=== PATIENT | male | born 1950 | race Caucasian/White ===

== ENCOUNTER 2018-06-16 16:40 | Inpatient (IN) | payer MEDICARE ==
[2018-06-16] MEDS ORDERED: Lidocaine Viscous Sol 2% 15 ml UD Cup ONE (18:43)
[2018-06-16] MEDS ORDERED: Mag-Al 1200 mg/1200 mg/30 ML UDCUP ONE (18:43)
[2018-06-16] MEDS ORDERED: Ondansetron PF 4 MG/2 ML Vial IVP PRN (21:31)
[2018-06-16] MEDS ORDERED: Ondansetron ODT 4 MG TAB PO PRN (21:31)
[2018-06-16 22:56] VITALS: BMI 41.1
[2018-06-17] MEDS: Piperacillin/Tazobactam 3.375 GM in Sodium Chloride 0.9% 100 ML IVPB SCH ×3 (00:18→12:45)
[2018-06-17] MEDS: Acetaminophen 325 MG TAB PO PRN ×3 (01:03→16:18)
--- NOTE | 2018-06-17 02:46 | HP ---
PRIMARY CARE DOCTOR: Dr. Shelbie Castaneda. CODE STATUS: Full code. TIME OF EVALUATION: 07:45 p.m. CHIEF COMPLAINT: Pain of the left ear and left facial drooping. HISTORY OF PRESENT ILLNESS: This is a 68-year-old male patient with past medical history of hypertension, came to the hospital after having left-sided ear pain, the symptoms have been present for the past week. He has received treatment as outpatient with amoxicillin and also switched to clindamycin yesterday. The patient was transferred from [place]. However, since yesterday night, the patient has left-sided facial droop that is new for him. He reported still having the same symptoms and having some associated hearing loss. The pain was dull in nature. Symptoms are moderate. REVIEW OF SYSTEMS: CONSTITUTIONAL: No fever, chills, or generalized weakness. RESPIRATORY: No cough, sputum production, or shortness of breath. HEENT: The patient has left ear pain. CARDIOVASCULAR: No chest pain or palpitations. GASTROINTESTINAL: No nausea, vomiting, diarrhea, or abdominal pain. BEHAVIORAL HEALTH ASSISTANT: No dizziness, headache, or feeling lightheaded. The patient reported left-sided drooping of his face. GENITOURINARY: No burning on urination. EXTREMITIES: No leg swelling. All other systems were reviewed and negative except for the findings mentioned above. PAST MEDICAL HISTORY: Positive for hypertension. PAST SURGICAL HISTORY: No surgical history. PSYCHIATRIC HISTORY: No previous psych history. SOCIAL HISTORY: The patient does not use alcohol, drugs, or tobacco. FAMILY HISTORY: Reviewed and noncontributory for current presentation. KNOWN ALLERGIES: No known drug allergies. REPORTED MEDICATIONS: None updated. PHYSICAL EXAMINATION: VITAL SIGNS: On presentation, blood pressure 138/99 with heart rate 79, respiratory rate was 16, temperature 99, pain was 0/10, and oxygen saturation was 96. GENERAL APPEARANCE: The patient is alert, oriented, not in acute distress. HEENT: Eyes, normal conjunctivae. Moist oral mucosa. Anicteric. No JVD. RESPIRATORY: Bilateral air entry. No rales. No wheezing. Symmetric expansion. CARDIOVASCULAR: Normal rate, regular rhythm. No murmurs. No gallop. No edema. ABDOMEN: Soft. Normal bowel sounds. MUSCULOSKELETAL: Baseline range of motion and strength. No tenderness. SKIN: Warm, intact. No pallor. No rash. No redness. Peripheral pulses are present. Capillary refill seems to be intact. NEUROLOGIC: The patient has left-sided facial droop with no other evident neurological deficit. The patient has some slurred speech, but he reported it is because of his left facial weakness. Other cranial nerve seems to be intact. PSYCH: The patient is in good mood. No anxiety. Optimal judgment. IMAGING DATA: CT of the internal auditory canal shows left mastoid fluid with a left middle ear soft tissue fullness and possible inflammatory process. There is asymmetric thickening of the left external auditory canal. LABORATORY DATA: White count 9.2, hemoglobin 16, MCV 83.4, and platelet count 380. Chemistry; sodium 133, potassium 3.9, chloride 99, carbon dioxide 26, anion gap 12, BUN 18, creatinine 1.0, GFR 75, glucose , lactic acid 2.0, calcium 9.4, total bilirubin 0.6, AST 25, ALT 32, alkaline phosphatase 82. Serum total protein 8.2, albumin 4.2, globulin 4.0, albumin-globulin ratio is 1.1. ASSESSMENT AND PLAN: The patient will be placed in the hospital with following medical problems: 1. Left-sided facial drooping of unclear etiology, could be related to the infection the patient has on the left ear involving the facial nerves. We will do MRI in the morning. We will place the patient on antibiotics, we will adjust the medications and plan as per clinical course. The patient may need to see ENT if not improving or if MRI is positive for any ear pathology or tumor. 2. Controlled hypertension, reconcile home medications. Adjust as needed. 3. Deep venous thrombosis prophylaxis. Job ID: [id number]
[2018-06-17] MEDS: Aspirin 81 mg Enteric Coated Tablet PO SCH (08:24)
[2018-06-17] MEDS: Amlodipine 10 MG TAB PO SCH (08:25)
[2018-06-17] MEDS: Lisinopril 20 MG TAB PO SCH (08:25)
[2018-06-17] MEDS: Enoxaparin Sodium 40 MG/0.4 ML SYRINGE SC SCH (08:25)
[2018-06-17 08:33] LABS: #Basophils 0.1 thou/uL (0.0-0.2); #Eosinphils 0.2 thou/uL (0.0-0.7); #Lymphocytes 3.3 thou/uL (1.20-3.40); #Monocytes 0.8 thou/uL (0.11-0.59); #Neutrophils 5.5 thou/uL (1.40-6.50); %Eosinophils 2.2 % (0.0-10.0); %Lymphocytes 32.9 % (21.0-51.0); %Monocytes 8.4 % (0.0-10.0); %Neutrophils 55.5 % (42.0-75.0); Hemoglobin 15.4 g/dL (14.0-18.0); Mean Corpuscular HGB CONC 33.6 g/dL (32.0-36.0); Mean Corpuscular Volume 86.4 fL (78.0-98.0); Mean Platelet Volume 7.4 fL (7.4-10.4); Platelet Count 349 thou/uL (130-400); White Blood Cell (WBC) Count 9.9 thou/uL (4.8-10.8)
[2018-06-17 08:49] LABS: Anion Gap 11 mmol/L (10-20); BUN (Urea Nitrogen) 18 mg/dL (8.4-25.7); Calc. Creatinine Clearance 121 mL/min (70-130); Calcium 9.2 mg/dL (7.8-10.44); Carbon Dioxide 28 mmol/L (23-31); Chloride 100 mmol/L (98-107); Estimated GFR-MDRD 65; Glucose 113 mg/dL (80-115); Sodium 135 mmol/L (136-145)
[2018-06-17] MEDS ORDERED: Lorazepam 1 MG TAB PO PRN (09:45)
[2018-06-17] MEDS ORDERED: Vancomycin HCl 1 GM in Premix Bag 1 BAG IVPB SCH (10:00)
[2018-06-17] MEDS ORDERED: Vancomycin HCl 2.5 GM in Sodium Chloride 0.9% 500 ML IVPB SCH (12:00)
--- NOTE | 2018-06-17 12:52 | MRI ---
MRI BRAIN AND IAC WITH AND WITHOUT CONTRAST: HISTORY: Patient with left ear infection, getting worse. TECHNIQUE: Multiplanar, multisequence pre and post contrast enhanced MR images of the brain and IACs obtained. FINDINGS: Images demonstrate abnormal enhancement and thickening involving much of the left pinna. This involv es the internal auditory canal, tragus, and antitragus regions. This is likely due to an inflammatory process. Fluid is seen in the left mastoid air cells. Some areas of prominent perivascular space are noted. No abnormal areas of intracranial enhancement or mass are seen. IMPRESSION: Left external ear and external auditory canal enhancement, as well as fluid in the left mastoid air c ells. Transcribed Date/Time: 06/17/2018 1:34 PM
[2018-06-17] MEDS ORDERED: Eucerin (Mineral Oil/Petrolatum,White) 30 gm Jar TOP PRN (14:33)
[2018-06-17] MEDS ORDERED: Acyclovir 400 mg Tablet PO SCH (15:00)
[2018-06-17] MEDS: Dexamethasone 4 mg/ml Vial SLOW IVP SCH (16:19)
[2018-06-17] MEDS: valACYclovir 500 MG TAB PO SCH (20:44)
--- NOTE | 2018-06-17 22:07 | CON ---
DATE OF CONSULTATION: 06/17/2018 BRIEF HISTORY: This is a 68-year-old gentleman who is having severe and sharp ear pain. He is also noticing some hyperesthesias of the right scalp and right congregational area. He also noticed a scratchy sore spot on his ear that had recently popped up in the day. He was treated with outpatient antibiotics and he was noted to have a middle ear effusion on this left side. One week leading up to this event, he was treated with amoxicillin and noted no improvement in his symptoms. He noticed a facial droop on his left side yesterday. He was taken to the emergency room in [place] where they diagnosed him with a Espinosa's palsy as well as otitis media. He was transferred here for higher level care. CT of the head shows no coalescence or dehiscence of the mastoid air cells. They appear to be intact. There is a scant amount of fluid present, but not a complete opacification or significant opacification. The petrous apex was poorly visualized on the CT scan. PAST MEDICAL HISTORY: Hypertension. He reports having chickenpox when he was a kid, otherwise immunizations up to date. PAST SURGICAL HISTORY: No history of otologic surgeries. MEDICATIONS: He received IV steroids yesterday as well as the antibiotics. He has been admitted overnight on IV antibiotics. PHYSICAL EXAMINATION: There is a left cranial nerve 7 paralysis, House-Brackmann 4. The left ear is tender to touch. It is not inflamed there is an excoriation versus a ruptured blister present. The tympanic membrane is intact. He does have a small scab on the TM. There is some clear serous fluid present in the left middle ear. Right ear TM is intact. Middle ear is well aerated. Nasal cavity is clear. Oral cavity is intact. Eyes, extraocular muscles are intact. The conjunctiva of the eye appears healthy. 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 PLAN: 1. I recommend IV steroids for another 24 hours and then switch over to oral steroids. Also, we will begin antiviral medicines as well. 2. Eye protection. We counseled him on using an eye patch and helping tape the eye shut laterally at night to prevent overexposure of dryness. We recommend he receive lubricating eye drops as well as Lacri-Lube as needed. We will continue to follow him as outpatient. He has an MRI pending for this early afternoon. We will review the MRI when it is completed. Job ID: [id number]
--- NOTE | 2018-06-17 23:10 | CON ---
DATE OF CONSULTATION: 06/17/2018 REASON FOR CONSULTATION: Left-sided peripheral facial palsy and ear complaints. HISTORY OF PRESENT ILLNESS: A 68-year-old gentleman, history of hypertension, 2-weeks history of left ear pain with some drainage. He was given oral antimicrobials without improvement. He then developed a facial palsy, left sided and decreased hearing and some pain in the second trigeminal distribution. Therefore, he was admitted. Dr. Garibay, ENT has seen the patient and felt that he might have herpes zoster infection with [place] Bojorquez syndrome. The patient currently has difficulty hearing on the left side. No headaches. He has pain in the left malar region and pain in the auricular canal left side, little bit of drainage. No sore throat, odynophagia, or dysphagia. No dyspnea or chest pain. No abdominal pain or diarrhea. No genitourinary symptoms. No joint symptoms. No skin disorder outside the area of involvement. PAST MEDICAL HISTORY: Hypertension. PAST SURGICAL HISTORY: Negative. SOCIAL HISTORY: Negative. He is . He is retired. He used to work in [employer]. FAMILY HISTORY: Noncontributory. CURRENT MEDICATIONS: He had been on; 1. Zosyn. 2. Vancomycin. 3. Acyclovir. 4. Decadron. He is also on; 1. Norvasc. 2. Aspirin. 3. Lisinopril. 4. Ondansetron. 5. Pantoprazole. PHYSICAL EXAMINATION: VITAL SIGNS: T-max 98.7, blood pressure 120/84, pulse 97, respirations 20, O2 saturation 97%. SKIN: Shows few areas of scabs in the external ear canal, left side. There is no lymphadenopathy. HEENT: Ocular movements are conjugate. Sclerae are white. Pupils are equal. Left peripheral facial palsy is noted. There is cerumen or some wax material within the left external ear canal and I could not see clearly the tympanic membrane. Oral cavity is normal. NECK: Supple. LUNGS: Symmetric. Clear breath sounds. HEART: S1, S2, regular rate. ABDOMEN: Soft, not distended or tender. GENITALIA: No genital abnormalities. EXTREMITIES: Moves all extremities equally. NEUROLOGICAL: Cognitive function appears to be intact. Plantar response are flexor. Strength in upper and lower extremity is symmetric. LABORATORY DATA: CBC is completely normal. Sodium 135, otherwise normal. IMAGING STUDIES: The patient had an MRI of the brain, which showed left external auditory canal enhancement and fluid in the mastoid cells. There is an internal auditory canal CT which showed left mastoid fluid, left middle ear soft tissue fullness, and possible inflammatory process. ASSESSMENT: 1. Hypertension. 2. Inflammatory changes, left ear canal soft tissues. 3. Mastoid fluid. 4. Left-sided peripheral facial palsy and pain in the areas of distribution of the trigeminal nerve associated with hearing impairment, left side. DISCUSSION: Differential diagnosis includes Joanne Bojorquez syndrome secondary to reactivation of herpes zoster in the second trigeminal distribution versus alternate processes including the possibility of an infection such as malignant external otitis or noninfectious syndrome such as cholesteatoma or other malignancy. I believe the [place] Bojorquez syndrome due to herpes zoster is the more likely phenomenon and we will submit herpes zoster DNA PCR from swab collected from the area of involvement. Discontinue Zosyn and vancomycin. Switch him to Valtrex 1 g q.8. Job ID: [id number]
--- NOTE | 2018-06-17 23:42 | PDOC.PN ---
- Subjective Encounter Start Date: 06/17/18 Encounter Start Time: 11:30 Patient seen and examined for Herpes Zoster. Feels the same. No focal neurologic deficits except Left LMN 7th nerve palsy. No overnight events - Objective Resuscitation Status - Order Detail: 06/16/18 21:31 Resuscitation Status Routine Resuscitation Status: FULL: Full Resuscitation MAR Reviewed: Yes Vital Signs & Weight: Vital Signs (12 hours) Temp Pulse Resp BP BP Pulse Ox 06/17/18 20:57 98.1 F 71 18 159/93 H 95 06/17/18 17:29 98.5 F 87 18 149/91 H 94 L 06/17/18 14:51 94 L Weight Admit Weight 295 lb Weight 295 lb I&O: 06/16/18 06/17/18 06/18/18 06:59 06:59 06:59 Intake Total 600 1500 Balance 600 1500 Result Diagrams: 06/17/18 07:32 06/17/18 07:32 Radiology Reviewed by me: Yes (MRI - No CVA) Phys Exam - Physical Examination Constitutional: NAD HEENT: PERRLA ear lesions noted Neck: no JVD, supple, full ROM Respiratory: no wheezing, no rales, no rhonchi, clear to auscultation bilateral Cardiovascular: RRR, no rub no heaves/pulsations Gastrointestinal: soft, non-tender, no distention, positive bowel sounds Musculoskeletal: no edema, pulses present Neurological: non-focal, normal sensation, moves all 4 limbs LMN 7th nerve palsy Psychiatric: normal affect, A&O x 3 Skin: no rash Dx/Plan - Plan DVT proph w/SCDs IMPRESSION Left ear inflammatory lesions with hearing loss and LMN 7th nerve palsy - ? [place] Bojorquez syndrome HTN Morbid obesity BMI 41.1 CKD 2 Hyponatremia PLAN: Cont Vancomycin/Zosyn Start IV Dexamethasone x 2 doses followed by PO Prednisone per ENT Start Antiviral AM labs Cont other meds as below Add artificial tears Review of Systems - Medications/Allergies Allergies/Adverse Reactions: Allergies Allergy/AdvReac Type Severity Reaction Status Date / Time No Known Drug Allergies Allergy Verified 06/16/18 21:43 Medications: Current Medications Acetaminophen (Tylenol) 650 mg PO Q4H PRN PRN Reason: Headache/Fever/Mild Pain (1-3) Last Admin: 06/17/18 16:18 Dose: 650 mg Amlodipine Besylate (Norvasc) 10 mg PO DAILY [facility] Last Admin: 06/17/18 08:25 Dose: 10 mg Aspirin (Ecotrin) 81 mg PO DAILY [facility] Last Admin: 06/17/18 08:24 Dose: 81 mg Dexamethasone (Decadron) 8 mg SLOW IVP 0300,1500 [facility] Stop: 06/18/18 03:01 Last Admin: 06/17/18 16:19 Dose: 8 mg Enoxaparin Sodium (Lovenox) 40 mg SC 0900 [facility] Last Admin: 06/17/18 08:25 Dose: 40 mg Lisinopril (Zestril) 20 mg PO DAILY [facility] Last Admin: 06/17/18 08:25 Dose: 20 mg Mineral Oil/White Petrolatum (Eucerin Cream) 0 gm TOP BIDPRN PRN PRN Reason: Dry Skin Miscellaneous Medication (Pharmacy To Dose) 1 each IVPB .VANCOMYCIN PRN PRN Reason: Pharmacy to dose Multivitamins (Theragran) 1 tab PO DAILY [facility] Ondansetron HCl (Zofran Odt) 4 mg PO Q6H PRN PRN Reason: Nausea/Vomiting Ondansetron HCl (Zofran) 4 mg IVP Q6H PRN PRN Reason: Nausea/Vomiting Pantoprazole Sodium (Protonix) 40 mg PO DAILY [facility] Prednisone (Prednisone) 60 mg PO [facility] Stop: 06/22/18 08:01 Saccharomyces Boulardii (Florastor) 250 mg PO DAILY [facility] Valacyclovir HCl (Valtrex) 1,000 mg PO TID [facility] Last Admin: 06/17/18 20:44 Dose: 1,000 mg
[2018-06-18] MEDS ORDERED: Vancomycin HCl 1.25 GM in Sodium Chloride 0.9% 250 ML 250 ML IVPB SCH (00:01)
[2018-06-18] MEDS: Dexamethasone 4 mg/ml Vial SLOW IVP SCH (02:36)
[2018-06-18 05:43] LABS: #Lymphocytes 1.5 thou/uL (1.20-3.40); #Monocytes 0.2 thou/uL (0.11-0.59); #Neutrophils 7.6 thou/uL (1.40-6.50); %Basophils 0.5 % (0.0-1.0); %Eosinophils 0.1 % (0.0-10.0); %Lymphocytes 16.4 % (21.0-51.0); %Monocytes 2.2 % (0.0-10.0); %Neutrophils 80.8 % (42.0-75.0); Hemoglobin 16.2 g/dL (14.0-18.0); Mean Corpuscular HGB CONC 33.2 g/dL (32.0-36.0); Mean Corpuscular Hemoglobin 28.7 pg (27.0-31.0); Mean Corpuscular Volume 86.6 fL (78.0-98.0); Mean Platelet Volume 7.3 fL (7.4-10.4); Platelet Count 392 thou/uL (130-400); RBC Distribution Width 12.8 % (11.5-14.5); Red Blood Cell (RBC) Count 5.63 mill/uL (4.70-6.10); White Blood Cell (WBC) Count 9.4 thou/uL (4.8-10.8)
[2018-06-18 06:13] LABS: ALT (SGPT) 28 U/L (8-55); AST (SGOT) 18 U/L (5-34); Albumin 4.1 g/dL (3.4-4.8); Alkaline Phosphatase 79 U/L (40-150); Anion Gap 15 mmol/L (10-20); BUN (Urea Nitrogen) 17 mg/dL (8.4-25.7); Bilirubin, Total 0.5 mg/dL (0.2-1.2); Calc. Creatinine Clearance 116 mL/min (70-130); Calcium 9.5 mg/dL (7.8-10.44); Carbon Dioxide 22 mmol/L (23-31); Chloride 99 mmol/L (98-107); Estimated GFR-MDRD 62; Globulin 3.9 g/dL (2.4-3.5); Glucose 163 mg/dL (80-115); Magnesium 2.1 mg/dL (1.6-2.6); Potassium 4.4 mmol/L (3.5-5.1); Sodium 132 mmol/L (136-145)
[2018-06-18] MEDS: Saccharomyces boulardii 250 MG CAP PO SCH (09:18)
[2018-06-18] MEDS: Lisinopril 20 MG TAB PO SCH (09:18)
[2018-06-18] MEDS: Enoxaparin Sodium 40 MG/0.4 ML SYRINGE SC SCH (09:18)
[2018-06-18] MEDS: Multivit, Therapeutic 1 TAB PO SCH (09:19)
[2018-06-18] MEDS: Amlodipine 10 MG TAB PO SCH (09:19)
[2018-06-18] MEDS: Aspirin 81 mg Enteric Coated Tablet PO SCH (09:19)
[2018-06-18] MEDS: predniSONE 20 MG TAB PO SCH (09:19)
[2018-06-18] MEDS: Artificial Tears 18 DROP/0.9 ML EA EYE SCH ×2 (10:42→16:06)
[2018-06-18] MEDS: valACYclovir 500 MG TAB PO SCH ×3 (10:43→20:20)
--- NOTE | 2018-06-18 15:16 | PDOC.PN ---
- Subjective Encounter Start Date: 06/18/18 Encounter Start Time: 14:15 Patient seen and examined for Left sided hearing loss. No new focal deficits. No new complaints. No overnight events - Objective Resuscitation Status - Order Detail: 06/16/18 21:31 Resuscitation Status Routine Resuscitation Status: FULL: Full Resuscitation Vital Signs & Weight: Vital Signs (12 hours) Temp Pulse Resp BP BP BP Pulse Ox 06/18/18 12:06 97.9 F 102 H 18 137/87 97 06/18/18 09:19 99 137/98 H 06/18/18 09:18 137/98 H 06/18/18 08:00 98.4 F 99 20 137/98 H 94 L 06/18/18 04:37 98.5 F 97 18 154/95 H 95 Weight Admit Weight 295 lb Weight 295 lb I&O: 06/17/18 06/18/18 06/19/18 06:59 06:59 06:59 Intake Total 600 2400 Balance 600 2400 Result Diagrams: 06/18/18 05:32 06/18/18 05:32 Phys Exam - Physical Examination Constitutional: NAD HEENT: PERRLA Left sided 7th nerve palsy, no ear drainage Respiratory: no wheezing, no rhonchi Cardiovascular: RRR, no rub Gastrointestinal: soft, non-tender, positive bowel sounds Musculoskeletal: no edema Neurological: non-focal, moves all 4 limbs Dx/Plan - Plan DVT proph w/SCDs IMPRESSION Left ear inflammatory lesions with hearing loss and left LMN 7th nerve palsy - ? Joanne Bojorquez syndrome HTN Morbid obesity BMI 41.1 CKD 2 Hyponatremia PLAN: Cont PO Steroids with Valtrex Cont other meds as below Cont artificial tears DC once cleared by ID Review of Systems - Review of Systems Respiratory: negative: Cough, Dry, Shortness of Breath, Hemoptysis, SOB with Excertion, Pleuritic Pain, Sputum, Wheezing Cardiovascular: negative: chest pain, palpitations, orthopnea, paroxysmal nocturnal dyspnea, edema, light headedness, other Gastrointestinal: negative: Nausea, Vomiting, Abdominal Pain, Diarrhea, Constipation, Melena, Hematochezia, Other - Medications/Allergies Allergies/Adverse Reactions: Allergies Allergy/AdvReac Type Severity Reaction Status Date / Time No Known Drug Allergies Allergy Verified 06/16/18 21:43 Medications: Current Medications Acetaminophen (Tylenol) 650 mg PO Q4H PRN PRN Reason: Headache/Fever/Mild Pain (1-3) Last Admin: 06/17/18 16:18 Dose: 650 mg Amlodipine Besylate (Norvasc) 10 mg PO DAILY [facility] Last Admin: 06/18/18 09:19 Dose: 10 mg Artificial Tears (Tears Naturale) 0 drop L EYE QID [facility] Aspirin (Ecotrin) 81 mg PO DAILY [facility] Last Admin: 06/18/18 09:19 Dose: 81 mg Enoxaparin Sodium (Lovenox) 40 mg SC 0900 [facility] Last Admin: 06/18/18 09:18 Dose: 40 mg Lisinopril (Zestril) 20 mg PO DAILY [facility] Last Admin: 06/18/18 09:18 Dose: 20 mg Mineral Oil/White Petrolatum (Eucerin Cream) 0 gm TOP BIDPRN PRN PRN Reason: Dry Skin Mineral Oil/White Petrolatum (Systane Nighttime Eye Ointment) 0 gm L EYE Q8H [facility] Miscellaneous Medication (Pharmacy To Dose) 1 each IVPB .VANCOMYCIN PRN PRN Reason: Pharmacy to dose Multivitamins (Theragran) 1 tab PO DAILY [facility] Last Admin: 06/18/18 09:19 Dose: 1 tab Ondansetron HCl (Zofran Odt) 4 mg PO Q6H PRN PRN Reason: Nausea/Vomiting Ondansetron HCl (Zofran) 4 mg IVP Q6H PRN PRN Reason: Nausea/Vomiting Pantoprazole Sodium (Protonix) 40 mg PO DAILY [facility] Last Admin: 06/18/18 09:19 Dose: 40 mg Prednisone (Prednisone) 60 mg PO [facility] Stop: 06/22/18 08:01 Last Admin: 06/18/18 09:19 Dose: 60 mg Saccharomyces Boulardii (Florastor) 250 mg PO DAILY [facility] Last Admin: 06/18/18 09:18 Dose: 250 mg Valacyclovir HCl (Valtrex) 1,000 mg PO TID [facility] Last Admin: 06/18/18 10:43 Dose: 1,000 mg
[2018-06-18] MEDS ORDERED: valACYclovir 500 MG TAB PO SCH (16:30)
[2018-06-18] MEDS: SYSTANE 3.5 GM TUBE L EYE SCH ×2 (16:56→22:04)
[2018-06-18] MEDS ORDERED: Artificial Tears 18 DROP/0.9 ML L EYE SCH (17:00)
[2018-06-18] MEDS: Artificial Tear Sol 15 ML BOT L EYE SCH (22:03)
[2018-06-19] MEDS: SYSTANE 3.5 GM TUBE L EYE SCH (07:39)
[2018-06-19] MEDS: Lisinopril 20 MG TAB PO SCH (07:39)
[2018-06-19] MEDS: predniSONE 20 MG TAB PO SCH (07:40)
[2018-06-19] MEDS: Saccharomyces boulardii 250 MG CAP PO SCH (07:40)
[2018-06-19] MEDS: Aspirin 81 mg Enteric Coated Tablet PO SCH (07:40)
[2018-06-19] MEDS: Multivit, Therapeutic 1 TAB PO SCH (07:41)
[2018-06-19] MEDS: Artificial Tear Sol 15 ML BOT L EYE SCH (07:41)
[2018-06-19] MEDS: valACYclovir 500 MG TAB PO SCH (07:41)
[2018-06-19] MEDS: Amlodipine 10 MG TAB PO SCH (07:41)
[2018-06-19 07:43] VITALS: BP 133/82
[2018-06-19 07:51] VITALS: TEMP 98.3
--- NOTE | 2018-06-20 09:35 | DIS ---
DATE OF ADMISSION: 06/16/2018 DATE OF DISCHARGE: 06/19/2018 DISCHARGE DISPOSITION: Home. FOLLOWUP: 1. Follow up with primary care physician, Dr. Shelbie Castaneda, in 1 week. 2. Follow up with Infectious Disease, Dr. Vela in 2 weeks. 3. Follow up with ENT, Dr. Cem Garibay, in 3 days. The patient was seen and examined on the day of discharge. Denies any new complaints. BRIEF HOSPITAL COURSE: The patient is a 68-year-old male who presented to the hospital with left ear pain along with facial droop. He was placed on antibiotics as outpatient. He initially presented to Medicine in the emergency room and was transferred to this facility. Please refer to the history and physical for further details. The patient was admitted to the hospital with a diagnosis of left sided facial drooping of unclear etiology. An MRI of the brain was negative for acute CVA. It showed left external ear and external auditory canal enhancement as well as fluid in the left mastoid air cells. He was seen by ENT Dr. Cem Garibay as well as Infectious Disease, Dr. Vela. According to ENT, the patient has left-sided Espinosa's palsy with probable [place] Bojorquez syndrome on the left side involving his left facial nerve. He received IV Decadron for 24 hours and has been switched to prednisone per ENT recommendation. He was also started on Valtrex 1 g 3 times a day per Infectious Disease recommendation. He was extensively counseled on eye protection along with eye patch and a tape to shut the eye at night to prevent dryness. He has been cleared by consultants for discharge. FINAL DIAGNOSES: 1. 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 2. Hypertension. 3. Morbid obesity with a BMI of 41.1. 4. Chronic kidney disease, stage 2. 5. Hyponatremia. 6. Left ear inflammatory lesion with hearing loss secondary to #1 (herpes zoster). PLAN: Plan of care was discussed with the patient and the family in detail they stated understanding. Job ID: [id number]
== END 2018-06-19 10:26 | disposition home or self-care (01) | DRG 74 ==
LOC: ERS 16:40 → OBSVTOIN 18:56 → T4-B 18:56
PROVIDERS: ADMIT Hospitalist; ATTEND Hospitalist
DX: G51.0 Bell's palsy (principal); B02.21 Postherpetic geniculate ganglionitis; Z68.41 Body mass index [BMI] 40.0-44.9, adult; E87.1 Hypo-osmolality and hyponatremia; E66.01 Morbid (severe) obesity due to excess calories; I12.9 Hypertensive chronic kidney disease with stage 1 through stage 4 chronic kidney disease, or unspecified chronic kidney disease; N18.2 Chronic kidney disease, stage 2 (mild)
CPT/HCPCS: 36415; 70553; 80048; 80053; 83735; 85025; 87798; 99284; J1100; J1650; J2543; J3370; J3490; J7050; J7512